=== PATIENT | female | born 1955 | race Caucasian/White ===

== ENCOUNTER 2018-02-22 11:56 | Inpatient (IN) | payer BC ==
[~2018-02-22] VITALS: Ht 160 cm; Wt 93.9 kg
[2018-02-22] MEDS ORDERED: IV NORMAL SALINE 1,000ML 1,000 ML IV SCH (12:31)
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
[2018-02-22] MEDS ORDERED: IOHEXOL 300 MG/ML 75 ML VIAL. IV ONE (12:45)
--- NOTE | 2018-02-22 12:45 | RAD ---
PQRS Compliance Statement: One or more of the following individualized dose reduction techniques were utilized for this examination: 1. Automated exposure control 2. Adjustment of the mA and/or kV according to patient size 3. Use of iterative reconstruction technique CT head without contrast 02/22/2018 12:29 PM INDICATION: Confusion, left sided droop COMPARISON: None available TECHNIQUE: Multiple axial CT images of the head were obtained from skull base through the vertex without intravenous contrast. FINDINGS: Head: Ventricles, sulci and basal cisterns are within normal limits. There is no hydrocephalus. Hernandez-white matter differentiation is normal. There is no acute intracranial hemorrhage. There is no mass, mass effect or midline shift. Posterior fossa is normal in appearance. Visualized portions of the orbits are normal. Paranasal sinuses are well aerated. Mastoid air cells are well aerated. Scalp and calvaria are normal. IMPRESSION: No acute intracranial hemorrhage. FOR INTERNAL CODING PURPOSES Critical result: Findings discussed with ARACELI ZUNIGA at 02/22/2018 12:41 PM. RESULT CODE: (C) Electronically signed by: Chandni Olsen MD (02/22/2018 12:41 PM) [id number]
[2018-02-22 12:47] LABS: BASO % 1 % (0-3); EOS # 0.2 x10^3/uL (0.0-0.7); EOS % 3 % (0-3); HEMATOCRIT 41.6 % (36.0-47.0); HEMOGLOBIN 13.7 g/dL (12.0-15.5); LYMPH # 2.3 x10^3/uL (1.0-4.8); LYMPH % 30 % (24-48); MEAN CORPUSCULAR HEMOGLOBIN 30 pg (25-35); MEAN CORPUSCULAR HGB CONC 33 g/dL (31-37); MEAN CORPUSCULAR VOLUME 91 fL (79-100); MONO # 0.5 x10^3/uL (0.0-1.1); MONO % 7 % (0-9); NEUT # 4.5 x10^3uL (1.8-7.7); NEUT % 60 % (31-73); PLATELET COUNT 226 x10^3/uL (140-400); RED BLOOD COUNT 4.59 x10^6/uL (3.50-5.40); RED CELL DISTRIBUTION WIDTH 13.8 % (11.5-14.5); WHITE BLOOD COUNT 7.5 x10^3/uL (4.0-11.0)
[2018-02-22 13:08] LABS: ALBUMIN 3.6 g/dL (3.4-5.0); CREATININE 1.1 mg/dL (0.6-1.0); GFR 50.2; MAGNESIUM 1.6 mg/dL (1.8-2.4); POTASSIUM 3.7 mmol/L (3.5-5.1); TOTAL BILIRUBIN 0.2 mg/dL (0.2-1.0); TOTAL PROTEIN 7.1 g/dL (6.4-8.2)
--- NOTE | 2018-02-22 13:14 | RAD ---
Chest radiograph 02/22/2018 12:50 PM INDICATION: Altered mental status COMPARISON: None available TECHNIQUE: Frontal view of the chest is provided. FINDINGS: The cardiomediastinal silhouette is within normal limits. There are no pleural effusions. There is no pulmonary vascular congestion. There is no pneumothorax. The lungs are clear. No significant osseous abnormality is identified. IMPRESSION: No acute cardiopulmonary process. Electronically signed by: Chandni Olsen MD (02/22/2018 1:10 PM) [facility]
--- NOTE | 2018-02-22 13:30 | RAD ---
Examination: CT angiography head and neck HISTORY: History of code stroke, confusion TECHNIQUE: Axial CT angiography images of the head and neck were performed with IV contrast. Coronal and sagittal 3-D MIP reformats are performed Exposure: One or more of the following individualized dose reduction techniques were utilized for this examination: 1. Automated exposure control 2. Adjustment of the mA and/or kV according to patient size 3. Use of iterative reconstruction technique Stenosis calculations for CT, MR, and conventional angiography are based upon measurements of the distal ICA diameter in accordance with the NASCET methodology. Stenosis calculations for carotid ultrasound studies are derived from validated velocity criteria which are known to correlate with the NASCET methodology. FINDINGS: The origin of the great vessels from the arch of the aorta grossly appears unremarkable. There is common origin of the right innominate and left common carotid artery. The bilateral carotid bulbs, proximal internal carotid arteries, external carotid arteries, middle cerebral arteries, anterior cerebral arteries, posterior cerebral arteries, vertebral arteries and the basilar arteries are patent Mild degenerative changes cervical spine. IMPRESSION: No evidence of hemodynamically significant stenosis or occlusive thrombus identified. Electronically signed by: Pablo Santos MD (02/22/2018 1:26 PM) [place] [id number]
[2018-02-22] MEDS ORDERED: IV NORMAL SALINE 1,000ML 1,000 ML IV ONE (13:45)
[2018-02-22 13:52] LABS: BACTERIA,URINE 0 /HPF (0-FEW); BILIRUBIN,URINE NEG (NEG); CLARITY,URINE HAZY; COLOR,URINE YELLOW; GLUCOSE,URINE NEG (NEG); GRANULAR CASTS,URINE OCC /HPF; NITRITE,URINE NEG (NEG); RBC,URINE 0 /HPF (0-2); SQUAMOUS EPITHELIAL CELL,UR OCC /LPF; UROBILINOGEN,URINE 0.2 mg/dL (0.2 mg/dL); WBC,URINE 0 /HPF (0-4)
[2018-02-22] MEDS ORDERED: IV NORMAL SALINE 500ML 500 ML IV ONE (14:00)
[2018-02-22] MEDS ORDERED: ESOM40CA PO (15:42)
[2018-02-22] MEDS ORDERED: ZOLP5TAB PO (15:42)
[2018-02-22] MEDS ORDERED: TOPI50TA38 PO (15:42)
[2018-02-22] MEDS ORDERED: CELE200C PO ×2 (15:42)
[2018-02-22] MEDS ORDERED: DARI15TA3 PO (15:42)
[2018-02-22] MEDS ORDERED: GABA800T3 PO (15:42)
[2018-02-22] MEDS ORDERED: LOSA100T2 PO (15:42)
[2018-02-22] MEDS ORDERED: TRIA1TAB5 PO (15:42)
[2018-02-22] MEDS ORDERED: LEVO175T2 PO (15:42)
[2018-02-22] MEDS ORDERED: CALC-102 PO (15:42)
[2018-02-22] MEDS ORDERED: FINA5TAB4 PO (15:42)
[2018-02-22] MEDS ORDERED: FISH12002 PO (15:42)
[2018-02-22 16:33] VITALS: BP 133/84
--- NOTE | 2018-02-22 16:35 | NUR ---
The patient, SALONI HEAD, 62 y/o, F admitted by JUVENCIO PHILLIPS MD, was given written information regarding hospital policies, unit procedures and contact persons. Patient admitted to room 125 from the ED and arrived to the unit at approx. 1600 via EMS. Valuables were checked and left in room with patient. Vital signs assessed and patient oriented to the room. Head-to-toe assessment performed and plan of care discussed. 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 Dr. Thomas consulted and paged. No return call at this time. Continue to monitor.
--- NOTE | 2018-02-22 17:37 | EKG ---
[address] [address] Test Date: 2018-02-22 Test Time: 12:21:20 Pat Name: SALONI HEAD Department: Room: 125 A Gender: F Android Programmer: RUTH ANN : 1955 Requested By: ARACELI ZUNIGA Order Number: [id number] Reading MD: Serge Agosto Measurements Intervals [place]abor Rate: 110 P: 34 DE: 156 QRS: -9 QRSD: 100 T: 16 QT: 318 QTc: 436 Interpretive Statements SINUS TACHYCARDIA LEFT ATRIAL ABNORMALITY LEFTWARD AXIS R-S TRANSITION ZONE IN V LEADS DISPLACED TO THE LEFT ABNORMAL ECG RI6.01 Unconfirmed report No previous ECG available for comparison Electronically Signed On 03-01-2018 11:05:39 [employer]ELOPMENT by Serge Agosto
[2018-02-22] MEDS ORDERED: CELECOXIB 200 MG PO PRN (17:45)
[2018-02-22] MEDS ORDERED: TOPIRAMATE 50 MG PO PRN (17:45)
[2018-02-22] MEDS ORDERED: NON FORMULARY ITEM (Finasteride 5 MG) PO PRN (17:45)
[2018-02-22] MEDS ORDERED: [UNRECOGNIZED DRUG - OTHER] PO PRN (17:45)
[2018-02-22] MEDS ORDERED: [UNRECOGNIZED DRUG - OTHER] PO PRN (17:45)
[2018-02-22] MEDS ORDERED: DARIFENACIN HYDROBROMIDE 15 MG PO PRN (17:45)
[2018-02-22] MEDS ORDERED: ZOLPIDEM 5 MG TABLET. PO PRN (17:45)
[2018-02-22] MEDS ORDERED: DEXTROSE 50% 25 GM / 50ML DISP.SYRIN. IV PRN (17:45)
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
--- NOTE | 2018-02-22 18:49 | PDOC ---
Exam Note: José Note: Please also refer to the separate dictated note~for this date of service dictated separately.~Patient seen individually. Discussed the patient with Nursing staff reviewed the chart.~Reviewed interim history and current functioning. Reviewed vital signs,~Labs/ Radiology~and current medications noted below. Continue current treatment with the changes noted in the dictated addendum note Assessment: Vital Signs: Vital Signs Date Time Temp Pulse Resp B/P (MAP) Pulse Ox O2 Delivery O2 Flow Rate FiO2 02/22/18 14:20 83 16 138/102 (114) 99 Room Air 02/22/18 11:56 98.5 Labs: Laboratory Tests Test 02/22/18 12:05 02/22/18 12:14 02/22/18 13:19 Glucose (Fingerstick) 161 mg/dL (70-99) H White Blood Count 7.5 x10^3/uL (4.0-11.0) Red Blood Count 4.59 x10^6/uL (3.50-5.40) Hemoglobin 13.7 g/dL (12.0-15.5) Hematocrit 41.6 % (36.0-47.0) Mean Corpuscular Volume 91 fL (79-100) Mean Corpuscular Hemoglobin 30 pg (25-35) Mean Corpuscular Hemoglobin Concent 33 g/dL (31-37) Red Cell Distribution Width 13.8 % (11.5-14.5) Platelet Count 226 x10^3/uL (140-400) Neutrophils (%) (Auto) 60 % (31-73) Lymphocytes (%) (Auto) 30 % (24-48) Monocytes (%) (Auto) 7 % (0-9) Eosinophils (%) (Auto) 3 % (0-3) Basophils (%) (Auto) 1 % (0-3) Neutrophils # (Auto) 4.5 x10^3uL (1.8-7.7) Lymphocytes # (Auto) 2.3 x10^3/uL (1.0-4.8) Monocytes # (Auto) 0.5 x10^3/uL (0.0-1.1) Eosinophils # (Auto) 0.2 x10^3/uL (0.0-0.7) Basophils # (Auto) 0.0 x10^3/uL (0.0-0.2) Prothrombin Time 9.3 SEC (9.4-11.4) L Prothrombin Time INR 0.9 (0.9-1.1) PTT 23 SEC (23-33) Sodium Level 141 mmol/L (136-145) Potassium Level 3.7 mmol/L (3.5-5.1) Chloride Level 105 mmol/L (98-107) Carbon Dioxide Level 26 mmol/L (21-32) Anion Gap 10 (6-14) Blood Urea Nitrogen 33 mg/dL (7-20) H Creatinine 1.1 mg/dL (0.6-1.0) H Estimated GFR (Cockcroft-Gault) 50.2 BUN/Creatinine Ratio 30 (6-20) H Glucose Level 177 mg/dL (70-99) H Calcium Level 9.0 mg/dL (8.5-10.1) Magnesium Level 1.6 mg/dL (1.8-2.4) L Total Bilirubin 0.2 mg/dL (0.2-1.0) Aspartate Amino Transferase (AST) 22 U/L (15-37) Alanine Aminotransferase (ALT) 32 U/L (14-59) Alkaline Phosphatase 106 U/L (46-116) Creatine Kinase 138 U/L (26-192) Creatine Kinase MB (Mass) 3.8 ng/mL (0.0-3.6) H Creatine Kinase MB Relative Index 2.8 % (0-4) Troponin I Quantitative < 0.017 ng/mL (0-0.055) MI-Ajn-S-Type Natriuretic Peptide 83 pg/mL (0-124) Total Protein 7.1 g/dL (6.4-8.2) Albumin 3.6 g/dL (3.4-5.0) Albumin/Globulin Ratio 1.0 (1.0-1.7) Lipase 85 U/L (73-393) Urine Collection Type Unknown Urine Color Yellow Urine Clarity Hazy Urine pH 7.0 Urine Specific [place] 1.015 Urine Protein Neg (NEG-TRACE) Urine Glucose (UA) Neg mg/dL (NEG) Urine Ketones (Stick) Neg mg/dL (NEG) Urine Blood Neg (NEG) Urine Nitrite Neg (NEG) Urine Bilirubin Neg (NEG) Urine Urobilinogen Dipstick 0.2 mg/dL (0.2 mg/dL) Urine Leukocyte Esterase Neg (NEG) Urine RBC 0 /HPF (0-2) Urine WBC 0 /HPF (0-4) Urine Squamous Epithelial Cells Occ /LPF Urine Bacteria 0 /HPF (0-FEW) Urine Granular Casts Occ /HPF Current Medications: Meds: Current Medications Iohexol (Omnipaque 300 Mg/ml) 75 ml 1X ONCE IV Last administered on at 12:49; Start 02/22/18 at 12:45; Stop 02/22/18 at 12:46; Status DC Sodium Chloride 1,000 ml @ 100 mls/hr Q10H IV Last administered on 02/22/18at 12:58; Start 02/22/18 at 12:31; Stop 02/22/18 at 22:30 Sodium Chloride 1,000 ml @ 1,000 mls/hr 1X ONCE IV Last administered on 02/22at 14:40; Start 02/22/18 at 13:45; Stop 02/22/18 at 14:44; Status DC Sodium Chloride 500 ml @ 0 mls/hr 1X ONCE IV ; Start 02/22/18 at 14:00; Stop 02/22/18 at 14:14; Status DC Levothyroxine Sodium (Synthroid) 175 mcg DAILYAC PO ; Start 02/23/18 at 07:30; Stop 02/23/18 at 07:30; Status DC Zolpidem Tartrate (Ambien) 5 mg PRN QHS PRN PO INSOMNIA; Start 02/22/18 at 17: 45; Stop 02/22/18 at 18:33; Status DC Non-Formulary Medication (Calcium Crb&Cit/ D3/Min34/Ariel (Citracal + Bone Density Tablet)) 1 each PRN PO .; Start 02/22/18 at 17:45; Stop 02/22/18 at 18 :33; Status DC Non-Formulary Medication (Celecoxib (Celebrex)) 200 mg BID PRN PO .; Start at 17:45; Stop 02/22/18 at 18:33; Status DC Non-Formulary Medication (Darifenacin Hydrobromide (Enablex)) 15 mg PRN PO .; Start 02/22/18 at 17:45; Stop 02/22/18 at 18:33; Status DC Non-Formulary Medication (Esomeprazole Magnesium (Nexium Capsule)) 40 mg DAILYAC PO ; Start 02/23/18 at 07:30; Stop 02/23/18 at 07:30; Status DC Non-Formulary Medication (Finasteride ) 5 mg PRN PO .; Start 02/22/18 at 17:45 ; Stop 02/22/18 at 18:33; Status DC Non-Formulary Medication (Fish Oil/Borage/ Flax/Om3,6,9#1 ([place] 3-6-9 1,200 mg Softgel)) 1,200 mg DAILY PO ; Start 02/23/18 at 09:00; Stop 02/23/18 at 09:00 ; Status DC Non-Formulary Medication (Gabapentin ) 800 mg TID PO ; Start 02/22/18 at 21:00 ; Stop 02/22/18 at 21:00; Status DC Non-Formulary Medication (Losartan Potassium (Cozaar)) 100 mg DAILY PO ; Start 02/23/18 at 09:00; Stop 02/23/18 at 09:00; Status DC Non-Formulary Medication (Topiramate (Topamax)) 50 mg PRN PO .; Start 02/22/18 at 17:45; Stop 02/22/18 at 18:34; Status DC Non-Formulary Medication (Triamterene/ Hydrochlorothiazid (Triamterene-Hctz 75- 50 Mg Tab)) 1 each PRN PO .; Start 02/22/18 at 17:45; Stop 02/22/18 at 18:34; Status DC Insulin Human Lispro (HumaLOG) 0-5 UNITS TIDWMEALS SQ ; Start 02/23/18 at 08:00 ; Status UNV Dextrose 12.5 gm PRN Q15MIN PRN IV SEE COMMENTS; Start 02/22/18 at 17:45; Status UNV Active Scripts Active Reported Ambien (Zolpidem Tartrate) 5 Mg Tablet 5 Mg PO HS Nexium Capsule (Esomeprazole Magnesium) 40 Mg Capsule.dr 40 Mg PO HS Topamax (Topiramate) 50 Mg Tablet 2 Tab PO HS Finasteride 5 Mg Tablet 5 Mg PO DAILY Cozaar (Losartan Potassium) 100 Mg Tablet 100 Mg PO DAILY Enablex (Darifenacin Hydrobromide) 15 Mg Tab.er.24h 15 Mg PO DAILY [place] 3-6-9 1,200 mg Softgel (Fish Oil/Borage/Flax/Om3,6,9#1) 1,200 Mg Capsule 2 Cap PO BID Citracal + Bone Density Tablet (Calcium Crb&Cit/D3/Min34/Ariel) 1 Each Tablet 1 Each PO BID Gabapentin 800 Mg Tablet 2 Cap PO BID Synthroid (Levothyroxine Sodium) 175 Mcg Tablet 175 Mcg PO DAILY06 Triamterene-Hctz 75-50 Mg Tab (Triamterene/Hydrochlorothiazid) 1 Each Tablet 1 Each PO DAILY Celebrex (Celecoxib) 200 Mg Capsule 200 Mg PO BID I have reviewed the current psychotropics carefully including drug interactions. Risk benefit ratio favors no change other than as noted in my dictated progress note. Diagnosis: Problems: (1) Acute alteration in mental status JUNO MTZ MD Feb 22, 2018 18:49
[2018-02-22] MEDS: OMEGA-3 FATTY ACIDS/FISH OIL 1,000 MG CAPSULE. PO SCH (21:00)
[2018-02-22] MEDS: PANTOPRAZOLE 40 MG TABLET. PO SCH (21:00)
[2018-02-22] MEDS ORDERED: NON FORMULARY ITEM (Gabapentin 800 MG) PO SCH (21:00)
[2018-02-22] MEDS ORDERED: ZOLPIDEM 5 MG TABLET. PO SCH (21:00)
[2018-02-22] MEDS ORDERED: TOPIRAMATE 100 MG TABLET. PO SCH (21:00)
[2018-02-22] MEDS: OXYBUTYNIN CHLORIDE 5 MG TABLET PO SCH (22:10)
[2018-02-22] MEDS: CELECOXIB 100 MG CAPSULE PO SCH (22:11)
[2018-02-22] MEDS: GABAPENTIN 400 MG CAPSULE. PO SCH (22:11)
[2018-02-23 00:32] VITALS: BP 146/83
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
[2018-02-23 06:02] VITALS: BP 150/74
[2018-02-23] MEDS ORDERED: LEVOTHYROXINE 175 MCG TABLET PO SCH (07:30)
[2018-02-23] MEDS ORDERED: NON FORMULARY ITEM (Esomeprazole Magnesium (Nexium Capsule) 40 MG) PO SCH (07:30)
[2018-02-23] MEDS: INSULIN LISPRO 300 UNITS/3 ML INSULN.PEN. SQ SCH ×3 (08:00→17:00)
[2018-02-23] MEDS ORDERED: FINASTERIDE 5 MG TABLET PO SCH (09:00)
[2018-02-23] MEDS: OMEGA-3 FATTY ACIDS/FISH OIL 1,000 MG CAPSULE. PO SCH (09:00)
[2018-02-23] MEDS ORDERED: BORAGE PO SCH (09:00)
[2018-02-23] MEDS ORDERED: [UNRECOGNIZED DRUG - OTHER] PO SCH (09:00)
[2018-02-23] MEDS ORDERED: NON FORMULARY ITEM (Losartan Potassium (Cozaar) 100 MG) PO SCH (09:00)
[2018-02-23] MEDS ORDERED: LOSARTAN 50 MG TABLET. PO SCH (09:00)
[2018-02-23] MEDS ORDERED: FLAX PO SCH (09:00)
[2018-02-23] MEDS ORDERED: FISH OIL PO SCH (09:00)
[2018-02-23] MEDS ORDERED: TRIAMTERENE/HCTZ 75/50MG TABLET. PO SCH (09:00)
[2018-02-23] MEDS: GABAPENTIN 400 MG CAPSULE. PO SCH (09:17)
[2018-02-23] MEDS: OXYBUTYNIN CHLORIDE 5 MG TABLET PO SCH ×2 (09:19→14:24)
[2018-02-23] MEDS: CELECOXIB 100 MG CAPSULE PO SCH (09:20)
[2018-02-23] MEDS: PANTOPRAZOLE 40 MG TABLET. PO SCH (09:20)
[2018-02-23] MEDS: CALCIUM CARB/VIT D3 500/200 TABLET PO SCH ×2 (09:23→17:28)
[2018-02-23 10:56] VITALS: BP 153/91
--- NOTE | 2018-02-23 13:36 | PN ---
DATE: 02/22/2018 SUBJECTIVE: The patient denies any new medical or neurological complaints. OBJECTIVE: GENERAL: Well-developed, well-nourished female, not in acute distress. VITAL SIGNS: Blood pressure 150/74, respiratory rate 20, pulse is 74, temperature 97.9, oxygen saturation 94% on room air. HEENT: Normocephalic, atraumatic, otherwise unremarkable. NECK: Supple. Negative for carotid bruit, lymphadenopathy or thyromegaly. LUNGS: Clear to A and P. CARDIOVASCULAR: Regular rate and rhythm, normal S1, S2. ABDOMEN: Soft. Bowel sounds positive. EXTREMITIES: Negative for cyanosis, clubbing or pitting edema. NEUROLOGIC: The patient is alert and oriented x 3. Speech is fluent. There is no language dysfunction. The patient recalls 3/3 immediately. Judgment and abstract thinkings are fair. The patient denies hallucination or delusion. Cranial nerves are intact. No focal motor or sensory deficit. Deep tendon reflexes were symmetric and active without pathologic responses. Gait and coordination are normal. LABORATORY DATA: Lab is pending this morning. I added to lab thyroid profile, B12, folate, RPR and vitamin B12 level. IMPRESSION: 1. Encephalopathy, probably due to underlying metabolic derangements/dehydration. 2. Intermittent spells of confusion, memory loss, urinary incontinence and difficulty finding words. 3. Multiple medical problems include hypothyroidism, hypertension and recently hyperglycemia. RECOMMENDATIONS: Continue with current management and neurological recommendations. M Sebastien XIAO MD DR: KALEB/clarence JOB#: [id number] / [id number]
[2018-02-23 14:54] VITALS: BP 129/82
--- NOTE | 2018-02-23 17:50 | PDOC ---
Exam Note: José Note: Please also refer to the separate dictated note~for this date of service dictated separately.~Patient seen individually. Discussed the patient with Nursing staff reviewed the chart.~Reviewed interim history and current functioning. Reviewed vital signs,~Labs/ Radiology~and current medications noted below. Continue current treatment with the changes noted in the dictated addendum note Assessment: Vital Signs: Vital Signs Date Time Temp Pulse Resp B/P (MAP) Pulse Ox O2 Delivery O2 Flow Rate FiO2 02/23/18 14:54 98.3 87 20 129/82 (98) 96 Room Air I&O Intake and Output 02/23/18 07:01 Intake Total 1240 ml Balance 1240 ml Intake Oral 240 ml IV Total 1000 ml Labs: Laboratory Tests Test 02/22/18 20:02 Glucose (Fingerstick) 100 mg/dL (70-99) H Current Medications: Meds: Current Medications Iohexol (Omnipaque 300 Mg/ml) 75 ml 1X ONCE IV Last administered on at 12:49; Start 02/22/18 at 12:45; Stop 02/22/18 at 12:46; Status DC Sodium Chloride 1,000 ml @ 100 mls/hr Q10H IV Last administered on 02/22/18at 12:58; Start 02/22/18 at 12:31; Stop 02/22/18 at 22:30; Status DC Sodium Chloride 1,000 ml @ 1,000 mls/hr 1X ONCE IV Last administered on 02/22at 14:40; Start 02/22/18 at 13:45; Stop 02/22/18 at 14:44; Status DC Sodium Chloride 500 ml @ 0 mls/hr 1X ONCE IV ; Start 02/22/18 at 14:00; Stop 02/22/18 at 14:14; Status DC Levothyroxine Sodium (Synthroid) 175 mcg DAILYAC PO ; Start 02/23/18 at 07:30; Stop 02/23/18 at 07:30; Status DC Zolpidem Tartrate (Ambien) 5 mg PRN QHS PRN PO INSOMNIA; Start 02/22/18 at 17: 45; Stop 02/22/18 at 18:33; Status DC Non-Formulary Medication (Calcium Crb&Cit/ D3/Min34/Ariel (Citracal + Bone Density Tablet)) 1 each PRN PO .; Start 02/22/18 at 17:45; Stop 02/22/18 at 18 :33; Status DC Non-Formulary Medication (Celecoxib (Celebrex)) 200 mg BID PRN PO .; Start at 17:45; Stop 02/22/18 at 18:33; Status DC Non-Formulary Medication (Darifenacin Hydrobromide (Enablex)) 15 mg PRN PO .; Start 02/22/18 at 17:45; Stop 02/22/18 at 18:33; Status DC Non-Formulary Medication (Esomeprazole Magnesium (Nexium Capsule)) 40 mg DAILYAC PO ; Start 02/23/18 at 07:30; Stop 02/23/18 at 07:30; Status DC Non-Formulary Medication (Finasteride ) 5 mg PRN PO .; Start 02/22/18 at 17:45 ; Stop 02/22/18 at 18:33; Status DC Non-Formulary Medication (Fish Oil/Borage/ Flax/Om3,6,9#1 ([place] 3-6-9 1,200 mg Softgel)) 1,200 mg DAILY PO ; Start 02/23/18 at 09:00; Stop 02/23/18 at 09:00 ; Status DC Non-Formulary Medication (Gabapentin ) 800 mg TID PO ; Start 02/22/18 at 21:00 ; Stop 02/22/18 at 21:00; Status DC Non-Formulary Medication (Losartan Potassium (Cozaar)) 100 mg DAILY PO ; Start 02/23/18 at 09:00; Stop 02/23/18 at 09:00; Status DC Non-Formulary Medication (Topiramate (Topamax)) 50 mg PRN PO .; Start 02/22/18 at 17:45; Stop 02/22/18 at 18:34; Status DC Non-Formulary Medication (Triamterene/ Hydrochlorothiazid (Triamterene-Hctz 75- 50 Mg Tab)) 1 each PRN PO .; Start 02/22/18 at 17:45; Stop 02/22/18 at 18:34; Status DC Insulin Human Lispro (HumaLOG) 0-5 UNITS TIDWMEALS SQ ; Start 02/23/18 at 08:00 Dextrose 12.5 gm PRN Q15MIN PRN IV SEE COMMENTS; Start 02/22/18 at 17:45 Losartan Potassium (Cozaar) 100 mg DAILY PO Last administered on 02/23/18 09: 19; Start 02/23/18 at 09:00 Celecoxib (CeleBREX) 200 mg BID PO Last administered on 02/23/18 09:20; Start 02/22/18 at 21:00 Gabapentin (Neurontin) 1,600 mg BID PO Last administered on 02/23/18 09:17; Start 02/22/18 at 21:00 Topiramate (Topamax) 100 mg HS PO Last administered on 02/22/18at 22:11; Start 02/22/18 at 21:00 Zolpidem Tartrate (Ambien) 5 mg HS PO Last administered on 02/22/18at 22:11; Start 02/22/18 at 21:00 Triamterene/HCTZ (Maxzide 75/50mg) 1 tab DAILY PO Last administered on at 09:19; Start 02/23/18 at 09:00 Pantoprazole Sodium (Protonix) 40 mg HS PO Last administered on 02/23/18 09: 20; Start 02/22/18 at 21:00 Finasteride (Proscar) 5 mg DAILY PO Last administered on 02/23/18 09:17; Start 02/23/18 at 09:00 Fish Oil (Fish Oil) 2,400 mg BID PO ; Start 02/22/18 at 21:00 Calcium/Vitamin D (Oscal D 500mg/ 200uts) 1 tab BIDWMEALS PO Last administered on 02/23/18at 17:28; Start 02/23/18 at 08:00 Oxybutynin Chloride (Ditropan) 5 mg [id number] PO Last administered on 02/23/18at 14:24; Start 02/22/18 at 21:00 Influenza Virus Vaccine (Afluria Trivalent [id number] Syringe) 0.5 ml ONCE ONCE VAX IM Last administered on 02/23/18 10:29; Start 02/23/18 at 09:00; Stop 02/23/18 at 09:01; Status DC Active Scripts Active Reported Ambien (Zolpidem Tartrate) 5 Mg Tablet 5 Mg PO HS Nexium Capsule (Esomeprazole Magnesium) 40 Mg Capsule.dr 40 Mg PO HS Topamax (Topiramate) 50 Mg Tablet 2 Tab PO HS Finasteride 5 Mg Tablet 5 Mg PO DAILY Cozaar (Losartan Potassium) 100 Mg Tablet 100 Mg PO DAILY Enablex (Darifenacin Hydrobromide) 15 Mg Tab.er.24h 15 Mg PO DAILY [place] 3-6-9 1,200 mg Softgel (Fish Oil/Borage/Flax/Om3,6,9#1) 1,200 Mg Capsule 2 Cap PO BID Citracal + Bone Density Tablet (Calcium Crb&Cit/D3/Min34/Ariel) 1 Each Tablet 1 Each PO BID Gabapentin 800 Mg Tablet 2 Cap PO BID Synthroid (Levothyroxine Sodium) 175 Mcg Tablet 175 Mcg PO DAILY06 Triamterene-Hctz 75-50 Mg Tab (Triamterene/Hydrochlorothiazid) 1 Each Tablet 1 Each PO DAILY Celebrex (Celecoxib) 200 Mg Capsule 200 Mg PO BID I have reviewed the current psychotropics carefully including drug interactions. Risk benefit ratio favors no change other than as noted in my dictated progress note. Diagnosis: Problems: (1) Mild cognitive impairment JUNO MTZ MD Feb 23, 2018 17:50
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
[2018-02-23 20:12] LABS: HEMOGLOBIN A1C 6.6 % (4.8-5.6)
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
== END 2018-02-23 19:04 | disposition home or self-care (01) | DRG 72 ==
LOC: ER 11:56 → 1 SOUTH 15:30
PROVIDERS: ADMIT Internal Medicine; ATTEND Internal Medicine
DX: G93.40 Encephalopathy, unspecified (principal); E03.9 Hypothyroidism, unspecified; E83.42 Hypomagnesemia; E86.0 Dehydration; G31.84 Mild cognitive impairment of uncertain or unknown etiology; I10 Essential (primary) hypertension; R32 Unspecified urinary incontinence; K21.9 Gastro-esophageal reflux disease without esophagitis; Z82.0 Family history of epilepsy and other diseases of the nervous system; Z79.899 Other long term (current) drug therapy; Z90.710 Acquired absence of both cervix and uterus; Z90.49 Acquired absence of other specified parts of digestive tract; Z86.73 Personal history of transient ischemic attack (TIA), and cerebral infarction without residual deficits; Z84.89 Family history of other specified conditions
CPT/HCPCS: 36415; 70450; 70496; 70498; 71045; 80053; 81001; 82553; 82607; 82947; 83036; 83690; 83735; 83880; 84443; 84484; 85025; 85610; 85730; 90471; 90756; 93005; 96360; 96361; J1815; Q9967; 99285-25; J7030; Q2035

== ENCOUNTER → 2018-12-19 | Outpatient (CLI) | payer BC ==
[~2018-12-19] MED LIST: CALC-102 PO; CELE200C PO; DARI15TA3 PO; ESOM40CA PO; FINA5TAB4 PO; FISH12002 PO; GABA800T5 PO; LEVO175T2 PO; LOSA100T2 PO; TOPI50TA38 PO; TRIA1TAB5 PO; ZOLP5TAB PO
--- NOTE | 2018-12-19 13:14 | RAD ---
Bone densitometry 12/19/2018 11:21 AM Indication: Postmenopausal Screening exam Comparison Study: Bone densitometry June 11, 2014. Discussion: Bone Densitometry was performed with dual photon absorption of the lumbar spine and left proximal femur Lumbar Spine: Bone average density is 0.958g/cm2 for L1-L4. T-Score is -1.8. (Prior T score -1.8) Left femoral neck:. Bone average density is 0.818/cm2. T-Score is -1.6. (Prior T score -1.4) IMPRESSION: Osteopenia, with similar bone density measurements to prior exam Note: Definitions established by the World Health Organization: Normal: T-score is -1.0 or above. Osteopenia: T-score is between -1.0 and -2.5. Osteoporosis: T-score is -2.5 or below. Electronically signed by: Serge Rocha MD (12/19/2018 1:11 PM) [id number]
--- NOTE | 2018-12-19 14:41 | RAD ---
EXAM: Lumbar spine, 7 views. HISTORY: Pain. COMPARISON: None. FINDINGS: 7 views lumbar spine are obtained. There is grade 1 anterolisthesis of L4 on L5. The vertebral bodies are normal in height and the disc spaces are preserved. There is facet arthropathy predominantly the lower lumbar levels. There are calcifications overlying the renal shadows which may be vascular or due to nephrolithiasis. There are multiple pelvic phleboliths. IMPRESSION: 1. Degenerative change primarily at the lower lumbar levels. 2. Grade 1 anterolisthesis of L4 on L5. Electronically signed by: Mary Skaggs MD (12/19/2018 2:38 PM) [email or web address]
== END | disposition home or self-care (01) ==
LOC: DXRAD 10:56
PROVIDERS: ATTEND Physician Assistant Medical
DX: M47.816 Spondylosis without myelopathy or radiculopathy, lumbar region (principal); M43.16 Spondylolisthesis, lumbar region; M46.86 Other specified inflammatory spondylopathies, lumbar region; M85.88 Other specified disorders of bone density and structure, other site; I87.8 Other specified disorders of veins; Z78.0 Asymptomatic menopausal state
CPT/HCPCS: 72110; 77080

== ENCOUNTER → 2020-04-03 | Outpatient (CLI) | payer MEDICARE, BC | LOC: LAB 15:53 | PROVIDERS: ATTEND Urology | DX: R35.0 Frequency of micturition (principal) | CPT/HCPCS: 87086 ==

== ENCOUNTER → 2020-05-02 | Outpatient (CLI) | payer MEDICARE, BC | LOC: LAB 15:34 | PROVIDERS: ATTEND Urology | DX: R35.0 Frequency of micturition (principal) | CPT/HCPCS: 87086 ==

== ENCOUNTER → 2020-05-06 | Outpatient (CLI) | payer MEDICARE, BC | LOC: LAB 13:10 | PROVIDERS: ATTEND Anesthesiology | DX: Z01.812 Encounter for preprocedural laboratory examination (principal); Z20.822 Contact with and (suspected) exposure to COVID-19 | CPT/HCPCS: U0003 ==

== ENCOUNTER → 2020-11-27 | Outpatient (CLI) | payer MEDICARE, BC | LOC: LAB 08:24 | PROVIDERS: ATTEND Urology | DX: R35.0 Frequency of micturition (principal) | CPT/HCPCS: 87077; 87086; 87186 ==

== ENCOUNTER → 2021-07-06 | Outpatient (CLI) | payer MEDICARE, BC ==
--- NOTE | 2021-07-06 17:11 | RAD ---
EXAM: Pelvis and bilateral hips, 5 views. HISTORY: Pain. COMPARISON: None. FINDINGS: A frontal view the pelvis and frontal and frog-leg views of both hips are obtained. There i s no fracture, dislocation or subluxation. There is marginal acetabular spurring. There is right hip capsular or labral calcification. There is degenerative change at the lower lumbar levels. IMPRESSION: 1. Mild bilateral hip osteoarthritis and right hip capsular or labral calcification. 2. No acute osseous finding. Electronically signed by: Mary Skaggs MD (07/06/2021 5:08 PM) [id number]
--- NOTE | 2021-07-06 17:13 | RAD ---
EXAM: Lumbar spine, 3 views. HISTORY: Pain. COMPARISON: None. FINDINGS: 3 views of the lumbar spine are obtained. There is 5 mm grade 1 anterolisthesis of L4 and L 5 and L5 on S1. There is facet arthropathy at these levels. There is minimal S-shaped thoracolumbar s coliosis. There are cholecystectomy clips. There are vascular calcifications and pelvic phleboliths. The possibility of right nephrolithiasis is not excluded. IMPRESSION: 1. Grade 1 anterolisthesis of L4 on L5 and L5 on S1. 2. Degenerative change primarily at L4-L5 and L5-S1. Electronically signed by: Mary Skaggs MD (07/06/2021 5:10 PM) [id number]
== END ==
LOC: RAD 16:23
PROVIDERS: ATTEND Physician Assistant Medical
DX: M47.27 Other spondylosis with radiculopathy, lumbosacral region (principal); M41.85 Other forms of scoliosis, thoracolumbar region; M43.17 Spondylolisthesis, lumbosacral region; M16.0 Bilateral primary osteoarthritis of hip; M76.892 Other specified enthesopathies of left lower limb, excluding foot; M76.891 Other specified enthesopathies of right lower limb, excluding foot; I87.8 Other specified disorders of veins; Z90.49 Acquired absence of other specified parts of digestive tract
CPT/HCPCS: 72100; 73521

== ENCOUNTER → 2021-07-24 | Outpatient (CLI) | payer MEDICARE, BC ==
--- NOTE | 2021-07-28 09:05 | RAD ---
US RENAL BILAT History: Right renal lesion. Comparison: MRI 07/16/2021 Technique: Sonographic examination of the kidneys and bladder. Findings: Right kidney: 9.9 cm length. A 3.6 cm diameter solid lesion demonstrating Doppler flow with exophytic contours is identified in the mid right kidney. There is also a by 1.5 cm right renal cyst. No hydro nephrosis. Left kidney: 12.5 cm length. No focal lesion, calculi or hydronephrosis. Bladder: No distal ureterectasis. No focal wall abnormality. Aorta/IVC: Visualized portions are unremarkable. Other: No ascites. Impression: 1. Suggestion of right renal mass measuring 3.6 cm concerning for renal malignancy. Ultrasound evalu ation is limited by body habitus and limitations in modality. No Recommend dedicated MRI or CT renal protocol for further characterization. Electronically signed by: Carlos Guerrier MD (07/28/2021 9:03 AM) [id number]
== END ==
LOC: US 14:37
PROVIDERS: ATTEND Physician Assistant Medical
DX: N28.9 Disorder of kidney and ureter, unspecified (principal)
CPT/HCPCS: 76770